=== PATIENT | female | born 1970 | race Caucasian/White ===

== ENCOUNTER 2016-10-19 12:31 | Emergency (ER) | payer SELFPAY ==
[~2016-10-19] VITALS: Ht 167.6 cm; Wt 65.0 kg
[2016-10-19] MEDS ORDERED: SODIUM CHLORIDE 0.9% 1,000 ML IV ONE (13:09)
[2016-10-19] MEDS ORDERED: ONDANSETRON HCL 4MG/2ML VIAL IV STA (13:09)
[2016-10-19] MEDS ORDERED: MECLIZINE 12.5MG TABLET PO ONE (13:15)
[2016-10-19 13:42] LABS: CLARITY URINE CLEAR (CLEAR); COLOR URINE YELLOW (YELLOW); GLUCOSE URINE NEGATIVE (NEGATIVE); KETONES URINE NEGATIVE (NEGATIVE); LEUKOCYTE ESTERASE URINE NEGATIVE (NEGATIVE); NITRITE URINE NEGATIVE (NEGATIVE); OCCULT BLOOD URINE 1+ (NEGATIVE); PH URINE 8.5 (4.5-8.0); PROTEIN URINE NEGATIVE (NEGATIVE); SPECIFIC GRAVITY URINE 1.009 (1.005-1.030); UROBILINOGEN URINE 0.2 E.U./dL (0.2-1.0)
[2016-10-19 13:44] LABS: BACTERIA URINE NONE SEEN; CALCIUM PHOSPHATE CRYSTALS UR NONE SEEN /lpf; RBC URINE 0-2 /hpf (0-2); SQUAMOUS EPITHELIAL CELL URINE NONE SEEN /lpf (RARE/1+); WAXY CASTS URINE NONE SEEN /lpf; WBC URINE NONE SEEN /hpf (0-2); YEAST URINE NONE SEEN
[2016-10-19 14:16] LABS: *AMPHETAMINES SCREEN URINE NEGATIVE (NEGATIVE); *BARBITURATES SCREEN URINE NEGATIVE (NEGATIVE); *BENZODIAZEPINES SCREEN URINE NEGATIVE (NEGATIVE); *COCAINE SCREEN URINE NEGATIVE (NEGATIVE); CANNABINOID URINE SCREEN NEGATIVE (NEGATIVE); ECSTASY MDMA SCREEN URINE NEGATIVE (NEGATIVE); METHADONE URINE SCREEN NEGATIVE (NEGATIVE); OPIATES URINE SCREEN NEGATIVE (NEGATIVE); PHENCYCLIDINE URINE SCREEN NEGATIVE (NEGATIVE)
[2016-10-19 14:59] LABS: BASOPHILS % 0.5 % (0.0-2.0); EOSINOPHILS % 0.8 % (0.0-5.0); HEMATOCRIT. 36.2 % (36.0-48.0); HEMOGLOBIN. 12.3 g/dL (12.0-16.0); LYMPHOCYTES % 23.6 % (20.0-50.0); MEAN CORPUSCULAR HEMOGLOBIN 28.5 pg (28.0-32.0); MEAN CORPUSCULAR HGB CONC 34.1 g/dL (31.0-37.0); MEAN CORPUSCULAR VOLUME 83.5 fL (81.0-99.0); MEAN PLATELET VOLUME 7.7 fl (7.4-10.4); NEUTROPHILS % 67.1 % (40.0-76.0); PLATELET 259 x1000/uL (130-400); RED BLOOD CELL COUNT 4.33 mill/uL (4.2-5.4); RED CELL DISTRIBUTION WIDTH 13.6 % (11.6-14.6); WHITE BLOOD COUNT 6.6 x1000/uL (4.5-11.0)
[2016-10-19 15:04] LABS: CHLORIDE 110 mEq/L (98-107); INDEX HEMOLYSI 1 (1-3); INDEX ICTERIC 1 (1-4); INDEX LIPEMIC 1 (1-3)
[2016-10-19 15:10] LABS: HCG SCREEN NEGATIVE
[2016-10-19 15:11] LABS: PROTHROMBIN TIME 10.5 sec
[2016-10-19 15:12] LABS: ALANINE AMINOTRANSFERASE 22 IU/L (13-61); ALBUMIN 3.3 g/dL (3.4-5.0); ANION GAP 9; CALCIUM 7.5 mg/dL (8.5-10.1); CARBON DIOXIDE 27 mEq/L (21-32); UREA NITROGEN BLOOD 10 mg/dL (7-21); eGFR > 60 mL/min (>60)
[2016-10-19 16:01] VITALS: BP 135/74
== END 2016-10-19 16:41 | disposition home or self-care (01) ==
LOC: ER 13:35
DX: H81.10 Benign paroxysmal vertigo, unspecified ear (principal)
CPT/HCPCS: 36415; 80053; 80305; 81001; 84703; 85025; 85610; 96361; 96374; 99285; J2405; J7030; Z7610; J8597

== ENCOUNTER 2023-11-13 11:07 | Emergency (ER) | payer MEDICAID ==
[~2023-11-13] VITALS: Ht 154.9 cm; Wt 69.0 kg
[2023-11-13 11:33] VITALS: O2SAT 99
[2023-11-13] MEDS: IBUPROFEN 800MG TABLET PO ONE (13:36)
[2023-11-13] MEDS: ACETAMINOPHEN 325MG TABLET PO ONE (13:36)
[2023-11-13] MEDS ORDERED: IBUP-2030 MT (13:38)
[2023-11-13] MEDS ORDERED: CYCL5TAB MT (13:38)
[2023-11-13 14:04] VITALS: BP 141/88; PULSE 87; RESP 18; TEMP 97.9
== END 2023-11-13 14:20 | disposition home or self-care (01) ==
LOC: ER 11:07
DX: M54.50 Low back pain, unspecified (principal); E11.9 Type 2 diabetes mellitus without complications
CPT/HCPCS: 72100; 99283

== ENCOUNTER 2023-12-03 23:17 | Emergency (ER) | payer MEDICAID, OTHER ==
[~2023-12-03] VITALS: Ht 162.6 cm; Wt 74.0 kg
[~2023-12-03 23:17] MED LIST: CYCL5TAB MT; IBUP-2030 MT
[2023-12-03 23:31] VITALS: O2SAT 97
[2023-12-03 23:52] LABS: BASOPHILS % 0.3 % (0.0-2.0); EOSINOPHILS % 1.1 % (0.0-5.0); HEMATOCRIT. 40.1 % (36.0-48.0); HEMOGLOBIN. 13.4 g/dL (12.0-16.0); LYMPHOCYTES % 15.1 % (20.0-50.0); MEAN CORPUSCULAR HEMOGLOBIN 28.4 pg (28.0-32.0); MEAN CORPUSCULAR HGB CONC 33.4 g/dL (31.0-37.0); MEAN CORPUSCULAR VOLUME 85.1 fL (81.0-99.0); MEAN PLATELET VOLUME 7.7 fl (7.4-10.4); MONOCYTES % 4.7 % (2.0-8.0); NEUTROPHILS % 78.8 % (40.0-76.0); PLATELET 275 x1000/uL (130-400); RED BLOOD CELL COUNT 4.71 mill/uL (4.2-5.4); RED CELL DISTRIBUTION WIDTH 13.3 % (11.6-14.6); WHITE BLOOD COUNT 10.1 x1000/uL (4.5-11.0)
[2023-12-04 00:10] LABS: CHLORIDE 104 mEq/L (98-107); POTASSIUM 4.1 mEq/L (3.5-5.1); SODIUM 139 mEq/L (136-145)
[2023-12-04 00:11] LABS: CALCIUM 9.7 mg/dL (8.7-10.4); CARBON DIOXIDE 30 mEq/L (21-32)
[2023-12-04 00:16] LABS: CREATININE 0.8 mg/dL (0.6-1.0); GLUCOSE 135 mg/dL (70-105); UREA NITROGEN BLOOD 16 mg/dL (9-23)
[2023-12-04 00:58] LABS: TROPONIN I HIGH SENSITIVITY 5 ng/L (3.0-34)
[2023-12-04] MEDS ORDERED: METOCLOPRAMIDE HCL 10MG TABLET PO ONE (01:00)
[2023-12-04] MEDS ORDERED: MECLIZINE 25MG TABLET PO ONE (01:00)
[2023-12-04] MEDS: METOCLOPRAMIDE HCL 10MG TABLET PO NR (01:06)
[2023-12-04] MEDS: MECLIZINE 12.5MG TABLET PO NR (01:07)
[2023-12-04] MEDS ORDERED: MECL-299 MT (01:20)
[2023-12-04 01:36] VITALS: BP 120/66; PULSE 71; RESP 16; TEMP 97.6
== END 2023-12-04 01:40 | disposition home or self-care (01) ==
LOC: ER 23:17
DX: R42 Dizziness and giddiness (principal); E11.9 Type 2 diabetes mellitus without complications; E03.9 Hypothyroidism, unspecified
CPT/HCPCS: 99284; 80048; 85025; 84484; 36415; 93005; 70450; J8597 ×2